=== PATIENT | male | born 1955 | race Caucasian/White ===

== ENCOUNTER 2016-12-25 16:40 | Observation (INO) | payer BC ==
[2016-12-25] MEDS ORDERED: HOME MEDICATION LIST NEEDED 1 EA EACH MC ONE (16:50)
[2016-12-25] MEDS: FUROSEMIDE 20 MG/2 ML VIAL IV SCH (18:28)
[2016-12-25] MEDS: DEXTROSE 5% IV SCH (18:32)
[2016-12-25] MEDS ORDERED: CLINDAMYCIN/D5W 50 ML IV ONE (18:32)
[2016-12-25] MEDS: D5W IV SCH (18:32)
[2016-12-25] MEDS: CLINDAMYCIN IV SCH (18:32)
[2016-12-25] MEDS ORDERED: NORMAL SALINE 500 ML IV ONE (18:32)
[2016-12-25] MEDS: ENOXAPARIN SODIUM 40 MG/0.4 ML SYR SUBCUT SCH (18:40)
[2016-12-25 20:30] LABS: BASOPHIL# 0.1 X 10^3uL (0.0-0.1); BASOPHILS 0.9 % (0.0-2.0); EOSINOPHILS 3.4 % (0.0-6.0); EOSINOPHILS# 0.4 X 10^3uL (0.0-0.4); HEMATOCRIT 43.1 % (42.0-54.0); HEMOGLOBIN 14.7 g/dL (14.0-18.0); LYMPHOCYTES 14.8 % (20.0-40.0); LYMPHOCYTES# 1.8 X 10^3uL (0.8-3.8); MEAN CELL VOLUME 87.9 fL (80.0-100.0); MEAN CORPUS. HGB CONCENTRATION 34.1 g/dL (32.0-36.0); MEAN PLATELET VOLUME 7.9 fL (7.4-10.4); MONOCYTES 7.2 % (2.0-10.0); MONOCYTES# 0.9 X 10^3uL (0.2-1.0); NEUTROPHILS 73.7 % (54.0-75.0); PLATELET COUNT 276 X 10^3uL (130-440); RED CELL DISTRIBUTION WIDTH 13.7 % (11.5-14.5); WHITE BLOOD COUNT 12.2 X 10^3uL (3.9-10.7)
[2016-12-25 20:39] LABS: BLOOD UREA NITROGEN 19 mg/dL (9-20); C-REACTIVE PROTEIN 89.3 mg/L (<10.0); CALCIUM 8.9 mg/dL (8.4-10.2); CHLORIDE 103 mmol/L (98-107); EST GLOMERULAR FILTRATION RATE > 60 mL/min; GLUCOSE 147 mg/dL (70-100); POTASSIUM 3.4 mmol/L (3.5-5.1); SODIUM 142 mmol/L (137-145)
[2016-12-25] MEDS: POTASSIUM CHLORIDE ER 20 MEQ TABLET PO SCH (20:48)
[2016-12-25] MEDS: ACETAMINOPHEN ER 650 MG TAB.SR.8HR PO SCH (20:48)
--- NOTE | 2016-12-25 20:48 | HISTORY & PHYSICAL ---
DATE OF ADMISSION: 12/25/16 ATTENDING PHYSICIAN: Edwin Marrufo MD CONSULTING CONSUMER INSIGHTS INTERN: Homero Morris MD HISTORY OF PRESENT ILLNESS: This 61-year-old gentleman has been battling bilateral foot ulcerations since last fall. His right foot wound healed several months ago, but he continues to has some ulcerations in the left dorsal foot, left lateral ankle, and most recently the left medial ankle. These have been treated primarily by Dr. Homero Morris, Podiatry, more recently with some help from the [facility] at [facility]. He had been progressing nicely with some serial grafting of the L foot lesion up until a month or so ago. The left lateral ankle wound has been slow to respond, probably related to some ongoing problems with bilateral pedal edema, worse on the left than the right. About 3 weeks ago, he developed a new ulceration in the medial left ankle. A week ago, this was about 1.5 cm in diameter. Over the past week, it has grown to 7 x 9 cm and today had a black eschar on it. There was increased drainage from the left lateral ankle wound. He has not had a fever , chills or generalized weakness. Dr. Morris called me this afternoon regarding the alarming worsening and recommending admission. I agreed and directly admitted the patient to [facility] for IV antibiotics and diuresis. PAST MEDICAL HISTORY 1. Chronic bilateral pedal edema. Venous Duplex scan bilaterally last fall ruled out any deep vein thrombosis and he has had no history of that. 2. Hypertension. 3. Morbid obesity. 4. Hypokalemia. 5. 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 6. Chronic bilateral lower extremity ulcers. MEDICATIONS Amlodipine 10 mg daily. Losartan/Hydrochlorothiazide 100/25 mg daily. Metoprolol succinate 200 mg daily. Potassium chloride 20 MEQ daily. ALLERGIES: No known drug allergies. PAST SURGICAL HISTORY 1. Tonsillectomy. 2. Multiple skin grafts on the left foot recently. FAMILY HISTORY: Noncontributory. SOCIAL HISTORY: Patient lives with his mother in [facility]. 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 He has been trying to take 10 minute breaks every hour, but still is not able to elevate his legs. He has never smoked and does not use alcohol or drugs. REVIEW OF SYSTEMS GENERAL: No fevers, chills or malaise. RESPIRATORY: No cough or shortness of breath. CARDIOVASCULAR: No chest pain or palpitations. GI: No nausea, vomiting or diarrhea. : No dysuria. MUSCULOSKELETAL/EXTREMITIES: Chronic bilateral pedal edema, worse on the left than the right. Some new pain in the left medial ankle. PHYSICAL EXAMINATION VITAL SIGNS ON ADMISSION: Temperature of 36.9, blood pressure 148/101, pulse 78 , respiratory rate 20. O2 saturation 94% on room air and his pain is at 2/10 in severity. GENERAL: He is alert and oriented x3 and in no acute distress. He is profoundly hard of hearing. He is a very large gentleman. His weight is 154.2 kilos. Height is 6 feet 4 inches. LUNGS: Clear. HEART: Regular rate and rhythm with no murmur. ABDOMEN: Obese, nontender without masses or hepatosplenomegaly. EXTREMITIES: Had marked pedal edema from the knee downward on the left with a calf diameter of 58 cm at a level 15 cm below the infrapatellar margin. The corresponding measurement on the right calf was 45.5 cm. I reviewed the pictures of the wounds taken by Tete Lowe the Wound Care Nurse this afternoon. On the dorsal left foot, he appeared to have a 1 x 4 cm area of superficial ulceration. On the medial left ankle he has a 7 x 9 cm black eschar with about 5 mm of surrounding erythema. The lateral left ankle has a 4 x 11 cm area of ulceration with some granulation tissue, a large amount of exudate material and also about 0.5 cm surrounding erythema. His calf was nontender and Homans sign negative. He has no obvious varicose veins and his feet are warm. IMAGING: Patient had a normal arterial duplex scan done on 06/25/16. Bilateral venous Dopplers were negative at that time. He has had no imaging yet on this admission. LABORATORY DATA: The following labs are still pending, D-Dimer, CBC, ESR, CRP, BMP. I chose not to get blood cultures since we have a recent wound culture pending from today, and patient does not have systemic symptoms. IMPRESSION 1. Rapid worsening of the medial left ankle ulceration. Highly suggestive of an active infection. 2. Chronic left foot and ankle ulcers since 06/2016. Likely these are due to venous insufficiency and his chronic edema. 3. Chronic bilateral pedal edema, worse on the left than the right. This is probably due to venous insufficiency and with Amlodipine. Amlodipine was increased from 5 to 10 mg in September. The patient was to follow up with me but has not. Rule out DVT. 4. Difficult to control hypertension. His blood pressures at home, though, have been in the 130s/80s according to the patient. 5. Profound chronic hearing loss. PLAN: Dr. Morris and I agreed to admit the patient to get him on IV antibiotics. I will initially try Clindamycin 900 mg IV q.8 hours. If he does not show some response to this soon, though, will need to broaden the coverage for possible methicillin-resistant staphylococcus aureus. I am anxiously awaiting the culture results from the wound from today as well. While in the hospital, we will be able to elevate his legs above heart level most of the time , which should be helpful. He has had a compression dressing applied today by Tete Lowe RN. I am hopeful that Dr. Morris might be able to do some debridement tomorrow. This will probably require sedation and the operating room. I have given him 20 mg of IV Lasix and holding his Amlodipine. I will continue his other blood pressure medications. Will repeat inflammatory labs tomorrow. JEFFERY
[2016-12-25] MEDS ORDERED: HOME MEDICATION LIST NEEDED 1 EA EACH MISC ONE (21:00)
[2016-12-25 21:05] LABS: ERYTHROCYTE SEDIMENTATION RATE 30 MM/HR (0-10)
[2016-12-26] MEDS: D5W IV SCH ×3 (02:01→18:12)
[2016-12-26] MEDS: CLINDAMYCIN IV SCH ×3 (02:01→18:12)
[2016-12-26] MEDS: DEXTROSE 5% IV SCH ×3 (02:01→18:12)
[2016-12-26] MEDS ORDERED: CLINDAMYCIN/D5W 50 ML IV ONE ×3 (02:11→18:22)
[2016-12-26 06:56] LABS: HEMATOCRIT 38.7 % (42.0-54.0); HEMOGLOBIN 12.8 g/dL (14.0-18.0); RED BLOOD COUNT 4.11 X 10^6uL (4.20-6.10)
[2016-12-26 06:57] LABS: LYMPHOCYTE % (Manual) 17 % (20.0-40.0); MEAN CORPUS. HGB CONCENTRATION 33.2 g/dL (32.0-36.0); MEAN CORPUSCULAR HEMOGLOBIN 31.3 pg (29.0-35.0); MONOCYTE % (Manual) 21 % (2.0-10.0); NEUTROPHIL % (Manual) 62 % (54.0-75.0); PLATELET COUNT 188 X 10^3uL (130-440); PLATELET ESTIMATE ADEQUATE
[2016-12-26 07:46] LABS: ERYTHROCYTE SEDIMENTATION RATE 38 MM/HR (0-10)
[2016-12-26] MEDS ORDERED: LIDOCAINE HCL/PF 4% 5 ML AMP TOPICAL ONE (08:26)
[2016-12-26] MEDS ORDERED: LIDOCAINE HCL 4% TOPICAL PRN (08:31)
[2016-12-26] MEDS: ACETAMINOPHEN ER 650 MG TAB.SR.8HR PO SCH ×3 (08:47→20:40)
[2016-12-26] MEDS: LOSARTAN POTASSIUM 50 MG TABLET PO SCH (09:00)
[2016-12-26] MEDS: POTASSIUM CHLORIDE ER 20 MEQ TABLET PO SCH ×2 (09:00→20:40)
[2016-12-26] MEDS ORDERED: LIDOCAINE HCL/PF 4% 5 ML AMP TOPICAL SCH (09:00)
[2016-12-26] MEDS ORDERED: LIDOCAINE HCL/PF 4% 5 ML AMP TOPICAL PRN (09:00)
[2016-12-26] MEDS: FUROSEMIDE 20 MG/2 ML VIAL IV SCH (09:01)
[2016-12-26] MEDS: ENOXAPARIN SODIUM 40 MG/0.4 ML SYR SUBCUT SCH (09:01)
[2016-12-26] MEDS: MORPHINE SULFATE 4 MG/ML SYR IV SCH ×2 (09:01→18:02)
[2016-12-26] MEDS: LEVOFLOXACIN 250 MG TABLET PO SCH (09:10)
--- NOTE | 2016-12-26 14:16 | PROGRESS NOTE: IM APSO ---
Assessment and Plan - Date of Encounter Date of Encounter: 12/26/16 (1) Foot ulcer, left Status: Acute Assessment and plan: I admitted him yesterday for acute infection and worsening of his medial and lateral left ankle ulcerations. I have placed him on clindamycin 900 mg every 8 hours initially. His white count has defervesced from 12,000 down to 10,000 on this. however, his ESR has risen from 30 up to 38. He remains afebrile and feels okay, except for some mild pain in the area of the ulceration. according to his wound care nurse and investor, the wounds appear healthier today with less drainage. Yesterday he had a severe odor to the wound, but that is decreased some today. Unfortunately, his outpatient wound culture gathered yesterday afternoon by the wound care nurse did not get set up last evening, but was set up this morning. given the odor and appearance of the wound, I am concerned about the possibility of Pseudomonas. I elected to add Levaquin today to help cover this. I made this choice over other possibly more potent antipseudomonal drugs, because the patient is very anxious to transition to outpatient care. He is very concerned about costs and has had trouble with pain consistent with outpatient follow-up. I will recheck labs in the morning. My hope initially was to discharge him Friday and 12/27/16 on either outpatient oral clindamycin or Levaquin. Now, that is seeming unlikely given the delays in culture results, and the development of atrial fibrillation today. I will switch him to inpatient care. Current Visit: No (2) Hypertension Status: Acute Assessment and plan: This remains under reasonable control on his usual losartan 100 mg daily, metoprolol succinate 200 mg daily. I also switched him from HCTZ 25 mg daily to IV furosemide 20 mg daily. I am holding his amlodipine 10 mg because of his pedal edema. Refer to the section on atrial fib. Current Visit: No (3) Hypokalemia Status: Acute Assessment and plan: He was slightly low on admission, so I have doubled his usual potassium dose to 20 mEq twice a day Current Visit: No (4) Pedal edema Status: Acute Assessment and plan: Chronic but worsened over the last few weeks, especially in the left leg. . This is significantly improved from admission. His weight is down 2 kg. Continue IV Lasix and left leg compression. The ultrasound machine broke half way through his exam today. The lower half of his left leg is free of clot. We are uncertain about the upper portion of the left leg. His d-dimer was mildly elevated. Bilateral venous duplex scans were negative in June. I suspect the edema is due to venous insufficiency and his amlodipine use. Current Visit: No (5) Wound infection Status: Acute Assessment and plan: refer to the section on foot ulcers. Current Visit: No (6) Atrial fibrillation with RVR Status: Acute Assessment and plan: During my rounds this morning noticed that his heart rate was irregular and slightly fast. an EKG and telemetry have confirmed atrial fibrillation with a rate in the 110 range. He is entirely asymptomatic. He has no previous known history of atrial fibrillation. He was already on metoprolol 200 mg daily. I will continue that, plus cautiously add 30 mg of short acting diltiazem by mouth and monitor. If he tolerates this well, I will switch to 120 mg controlled release. I am holding off on adding anticoagulation in anticipation of possible debridement today. Dr. Morris no longer has adequate time to do that today. I have asked Dr. Ibarra to consider it. It would be nice to get this done today so that we can start anticoagulating him for the A. fib. I have ordered an echocardiogram and cardiology consult for tomorrow. I will switch him to inpatient status. Current Visit: Yes - Time Spent With Patient Total time spent with greater than 50% in coordination of care (as documented) at patient's floor/unit and/or counseling patient: Estimated anticipated discharge: ??? IM: PN Subjective General: good appetite, no fatigue, no confusion, no diaphoresis, no fever, no chills HEENT: no headache Cardiovascular: no chest pain, no palpitations, no dizziness Respiratory: no cough, no wheeze Gastrointestinal: no abdominal pain Musculoskeletal: pain (mild in the left lateral ankle), swelling (left leg worse than the right leg. Both improved) Integumentary: wound Neurological: no numbness, no limb weakness IM: PN Objective Exam - I&O/Vital Signs I&O: Intake & Output 12/26/16 12/26/16 12/26/16 05:59 13:59 21:59 Weight 152.226 kg Other: Urine Appearance Clear Urine Color Straw Voiding Method Urinal Vital Signs: Last Vital Signs Temp 36.9 C 12/26/16 11:00 Pulse 87 12/26/16 11:00 Resp 18 12/26/16 11:00 BP 133/99 12/26/16 11:00 Pulse Ox 94 12/26/16 11:00 Oxygen Delivery Method Room Air - Constitutional General appearance: Present: obese. Absent: acute distress - Head Head exam: Present: normal inspection - ENT ENT exam: Present: mucous membranes moist - Respiratory Respiratory exam: Present: clear - Cardiovascular Cardiovascular exam: Present: irregular rhythm, tachycardia - GI/Abdominal GI/Abdominal exam: Present: soft. Absent: tenderness - Extremities Exam Extremities exam: Present: normal capillary refill, edema (but decreased compared to yesterday), tenderness (both ankle wounds - mild/mod.). Absent: calf tenderness - Neurological Exam Neurological exam: Present: oriented X3 - Psychiatric Psychiatric exam: Present: normal mood - Lab Labs: Laboratory Last Values WBC 10.0 X 10^3uL (3.9-10.7) 12/26/16 05:15 RBC 4.11 X 10^6uL (4.20-6.10) L 12/26/16 05:15 Hgb 12.8 g/dL (14.0-18.0) L 12/26/16 05:15 Hct 38.7 % (42.0-54.0) L 12/26/16 05:15 MCV 94.0 fL (80.0-100.0) D 12/26/16 05:15 MCH 31.3 pg (29.0-35.0) 12/26/16 05:15 MCHC 33.2 g/dL (32.0-36.0) 12/26/16 05:15 RDW Not Reportable 12/26/16 05:15 Plt Count 188 X 10^3uL (130-440) 12/26/16 05:15 MPV Not Reportable 12/26/16 05:15 Total Counted 100 12/26/16 05:15 Neutrophils % 73.7 % (54.0-75.0) 12/25/16 20:10 Neutrophils % (Manual) 62 % (54.0-75.0) 12/26/16 05:15 Lymphocytes % 14.8 % (20.0-40.0) L 12/25/16 20:10 Lymphocytes % (Manual) 17 % (20.0-40.0) L 12/26/16 05:15 Monocytes % (Manual) 21 % (2.0-10.0) H 12/26/16 05:15 Eosinophils % 3.4 % (0.0-6.0) 12/25/16 20:10 Basophils % 0.9 % (0.0-2.0) 12/25/16 20:10 Neutrophils # 9.0 X 10^3uL (2.6-6.7) H 12/25/16 20:10 Lymphocytes # 1.8 X 10^3uL (0.8-3.8) 12/25/16 20:10 Monocytes 7.2 % (2.0-10.0) 12/25/16 20:10 Monocytes # 0.9 X 10^3uL (0.2-1.0) 12/25/16 20:10 Eosinophils # 0.4 X 10^3uL (0.0-0.4) 12/25/16 20:10 Basophils # 0.1 X 10^3uL (0.0-0.1) 12/25/16 20:10 Platelet Estimate Adequate 12/26/16 05:15 ESR 38 MM/HR (0-10) H 12/26/16 05:15 D-Dimer 467 ng/mL H* 12/25/16 20:10 Sodium 142 mmol/L (137-145) 12/25/16 20:10 Potassium 3.4 mmol/L (3.5-5.1) L 12/25/16 20:10 Chloride 103 mmol/L (98-107) 12/25/16 20:10 Carbon Dioxide 26 mmol/L (22-30) 12/25/16 20:10 BUN 19 mg/dL (9-20) 12/25/16 20:10 Creatinine 1.0 mg/dL (0.7-1.3) 12/25/16 20:10 GFR Calculation > 60 mL/min 12/25/16 20:10 Glucose 147 mg/dL (70-100) H 12/25/16 20:10 Calcium 8.9 mg/dL (8.4-10.2) 12/25/16 20:10 C-Reactive Protein 89.3 mg/L (<10.0) H 12/25/16 20:10 Quality Questions - VTE Prophylaxis Assessment VTE Present on Admission?: No Patient at risk for venous thromboembolism?: Yes VTE Risk Level: High Risk Pharmaceutical VTE prophylaxis contraindication reason: N/A- VTE prophylaxsis ordered Mechanical VTE prophylaxis contraindication reason: N/A- VTE prophylaxsis ordered (1) Foot ulcer, left Qualifiers: Non-pressure ulcer stage: with fat layer exposed Qualified Code(s): L97.522 - Non-pressure chronic ulcer of other part of left foot with fat layer exposed (2) Hypertension Qualifiers: Hypertension type: essential hypertension Qualified Code(s): I10 - Essential (primary) hypertension
[2016-12-26] MEDS ORDERED: DILTIAZEM HCL 30 MG TABLET PO SCH (15:00)
[2016-12-26] MEDS: LIDOCAINE HCL/PF 4% 5 ML AMP TOPICAL PRN (18:04)
[2016-12-26] MEDS ORDERED: COLLAGENASE OINT 30 APP/30 GM TUBE TOPICAL ONE (18:42)
[2016-12-26] MEDS ORDERED: NON-FORMULARY MEDICATION (Eliquis 5 MG) PO SCH (21:00)
[2016-12-26] MEDS ORDERED: DILTIAZEM HCL CD 120 MG CAPSULE PO SCH (21:00)
[2016-12-27] MEDS: D5W IV SCH (02:03)
[2016-12-27] MEDS: CLINDAMYCIN IV SCH (02:03)
[2016-12-27] MEDS: DEXTROSE 5% IV SCH (02:03)
[2016-12-27] MEDS ORDERED: CLINDAMYCIN/D5W 50 ML IV ONE (02:12)
[2016-12-27] MEDS ORDERED: NORMAL SALINE 250 ML IV ONE (02:14)
[2016-12-27 05:35] LABS: BASOPHIL# 0.1 X 10^3uL (0.0-0.1); EOSINOPHILS 2.4 % (0.0-6.0); EOSINOPHILS# 0.3 X 10^3uL (0.0-0.4); HEMATOCRIT 41.5 % (42.0-54.0); HEMOGLOBIN 14.1 g/dL (14.0-18.0); LYMPHOCYTES 13.2 % (20.0-40.0); LYMPHOCYTES# 1.4 X 10^3uL (0.8-3.8); MEAN CELL VOLUME 87.9 fL (80.0-100.0); MEAN CORPUSCULAR HEMOGLOBIN 29.8 pg (29.0-35.0); MEAN PLATELET VOLUME 7.9 fL (7.4-10.4); MONOCYTES 9.7 % (2.0-10.0); NEUTROPHILS 73.7 % (54.0-75.0); NEUTROPHILS# 7.7 X 10^3uL (2.6-6.7); PLATELET COUNT 229 X 10^3uL (130-440); RED BLOOD COUNT 4.72 X 10^6uL (4.20-6.10); RED CELL DISTRIBUTION WIDTH 13.5 % (11.5-14.5); WHITE BLOOD COUNT 10.5 X 10^3uL (3.9-10.7)
[2016-12-27 05:47] LABS: BLOOD UREA NITROGEN 16 mg/dL (9-20); C-REACTIVE PROTEIN > 90.0 mg/L (<10.0); CALCIUM 8.5 mg/dL (8.4-10.2); CHLORIDE 109 mmol/L (98-107); CREATININE 0.8 mg/dL (0.7-1.3); EST GLOMERULAR FILTRATION RATE > 60 mL/min; GLUCOSE 109 mg/dL (70-100); POTASSIUM 3.8 mmol/L (3.5-5.1); SODIUM 142 mmol/L (137-145)
[2016-12-27 06:10] LABS: ERYTHROCYTE SEDIMENTATION RATE 32 MM/HR (0-10)
[2016-12-27] MEDS: LOSARTAN POTASSIUM 50 MG TABLET PO SCH (08:04)
[2016-12-27] MEDS: POTASSIUM CHLORIDE ER 20 MEQ TABLET PO SCH (08:04)
[2016-12-27] MEDS: LEVOFLOXACIN 250 MG TABLET PO SCH (08:05)
[2016-12-27] MEDS: ACETAMINOPHEN ER 650 MG TAB.SR.8HR PO SCH ×3 (08:05→15:19)
[2016-12-27] MEDS: FUROSEMIDE 20 MG/2 ML VIAL IV SCH (08:07)
[2016-12-27] MEDS: ENOXAPARIN SODIUM 40 MG/0.4 ML SYR SUBCUT SCH (08:07)
[2016-12-27] MEDS ORDERED: APIXABAN 2.5 MG TABLET PO SCH (09:00)
[2016-12-27] MEDS ORDERED: ACETAMINOPHEN 325 MG TABLET PO PRN (09:51)
[2016-12-27] MEDS ORDERED: DILTIAZEM HCL CD 120 MG CAPSULE PO SCH (10:00)
[2016-12-27] MEDS: CLINDAMYCIN/D5W 50 ML IV SCH ×2 (10:02→17:47)
[2016-12-27] MEDS: LIDOCAINE HCL/PF 4% 5 ML AMP TOPICAL PRN (13:50)
--- NOTE | 2016-12-27 14:03 | CONSULTATION ---
DATE OF CONSULTATION: 12/27/16 REQUESTING PHYSICIAN: Edwin Marrufo MD. REASON FOR CONSULTATION: Atrial fibrillation. HISTORY OF PRESENT ILLNESS: The patient is a 61-year-old male admitted to [facility] on 12/25/16 with lower extremity cellulitis. Cardiology consultation was requested regarding atrial fibrillation. He was thought to be in sinus rhythm on admission, however, yesterday during rounds he was noted to be tachycardic with an irregularly irregular rhythm. An ECG was performed (currently unavailable for review) which apparently indicated atrial fibrillation. He is not know to have arrhythmia in the past. This morning he denies palpitations, chest pain or dyspnea. He has no prior history of coronary artery disease or CHF. He does have a fairly complex past medical history consisting of chronic lower extremity edema and cellulitis. He does not have known peripheral arterial disease. He has history of hypertension, morbid obesity and profound hearing loss. MEDICATIONS: His outpatient medications have been Amlodipine 10 mg a day. Losartan/hydrochlorothiazide 100/25 mg daily. Metoprolol 200 mg daily. Potassium 20 mEq daily. ALLERGIES: None. PAST SURGICAL HISTORY: Significant for 1. Tonsillectomy. 2. Prior left foot skin grafts for wounds. FAMILY HISTORY: No premature cardiovascular disease. 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 He also works in [employer] in a [employer]. CURRENT INPATIENT MEDICATIONS Losartan 100 mg p.o. q.day. Metoprolol 200 mg q.day. Morphine 4 mg IV p.r.n. Potassium 20 mEq b.i.d. Eliquis 5 mg b.i.d. Diltiazem CD 120 mg at bedtime. Lovenox 40 mg subcu q.day. Lasix 20 mg IV q.day. Levaquin 750 mg p.o. q.day. REVIEW OF SYSTEMS GENERAL: He reports feeling fairly well. He denies any pain or discomfort at the present time. He has had no recent fevers, chills or nausea. NEUROLOGIC: No stroke or TIA like symptoms. CARDIOVASCULAR: No palpitation. No chest pain. No dyspnea on exertion. He does have chronic lower extremity edema thought to be venous insufficiency. RESPIRATORY: No cough. No wheeze. GI: No nausea, vomiting, diarrhea. : No dysuria. PHYSICAL EXAMINATION VITAL SIGNS: Blood pressure 122/92. He is tachycardic in atrial flutter at 150 beats per minute. He is afebrile. O2 saturation 94-99% on room air. NECK: Neck veins are not elevated. Carotid upstrokes appear to be normal bilaterally. No bruits. CHEST: Lungs clear to auscultation. No wheezes or rales. CARDIAC: He is tachycardic. Normal S1, normal S2 and no murmur, no gallop, no rub. ABDOMEN: Obese, soft, nontender, nondistended. EXTREMITIES: He has 2-3+ lower extremity edema bilaterally. His bilateral lower extremities are wrapped and not undressed to visualize foot wounds. LABORATORY DATA: On 12/27 hemoglobin was 14.1, ESR 32. Potassium 3.8, glucose 109, CRP greater than 90. Creatinine 0.8. He had a rest echocardiogram this morning which I have reviewed personally. Again, he is in atrial flutter with rapid ventricular response during the exam. He appears to have low normal LV systolic function, EF 50%. There are no obvious regional wall motion abnormalities. No significant valvular heart disease. No pericardial effusion. IMPRESSION 1. Atrial flutter with RVR. 2. LVEF 50%. 3. Chronic lower extremity edema and wounds likely due to venous insufficiency and chronic venostasis. 4. Obesity. RECOMMENDATIONS: Management was discussed with his admitting physician. Would continue efforts at ventricular rate control with beta rain adding some calcium channel rain either oral or IV. Digoxin 0.25 mg daily could be added as well. I agree with anticoagulation consisting of Eliquis 5 mg b.i.d. The subcutaneous Lovenox could be discontinued now that he is on Eliquis. If ventricular rate control is difficult to achieve cardioversion may have to be considered. I would recommend a transesophageal echocardiogram prior to proceeding with a cardioversion. While he was in sinus rhythm on admission he is completely asymptomatic despite significant tachycardia today and he may be in and out of atrial arrhythmia as an outpatient. Otherwise he should receive 4 weeks of uninterrupted oral anticoagulation prior to a cardioversion. If his arrhythmia is primarily atrial flutter he might be considered for atrial flutter ablation at some point. This would not obviate the need for oral anticoagulation, however, as he is at risk for atrial fibrillation as well. Please do not hesitate to contact the on-call plastics spreading machine operator for [facility] over the holiday weekend if problems arise. Otherwise have the patient followup with Cardiology in [place] early next week. This was discussed with the patient and his admitting physician. All questions were answered. Thank you for asking us to participate in the care of this unfortunate gentleman. JEFFERY
[2016-12-27] MEDS: MORPHINE SULFATE 4 MG/ML SYR IV SCH (15:19)
[2016-12-27 16:07] VITALS: BP 137/94; RESP 24; TEMP 99.4; O2SAT 91
[2016-12-27 16:10] VITALS: PULSE 91
--- NOTE | 2016-12-27 21:33 | DC SUMMARY: IM Note ---
Discharge Summary: IM/Peds Provider: Date of Admission: 12/26/16 Admitting Provider: ROSY KENNEDY MD Attending Provider: ROSY KENNEDY MD Discharging Provider: ROSY KENNEDY MD Primary Care Provider: Discharge Date: 12/27/16 Consults: 12/25/16 18:51 Podiatry Consult [CONS] Routine Reason: debridement of infected L ankle ulcers 12/27/16 08:00 Cardiology Consult [CONS] . Reason: Hx of CHF, pacer/defib - Diagnosis (1) Foot ulcer, left Status: Acute Qualifiers: Non-pressure ulcer stage: with fat layer exposed Qualified Code(s): L97.522 - Non-pressure chronic ulcer of other part of left foot with fat layer exposed (2) Hypertension Status: Acute Qualifiers: Hypertension type: essential hypertension Qualified Code(s): I10 - Essential (primary) hypertension (3) Hypokalemia Status: Acute (4) Pedal edema Status: Acute (5) Wound infection Status: Acute (6) Atrial fibrillation with RVR Status: Acute (7) Elevated d-dimer Status: Acute Hospital Course: Admitted for infection of chronic venous stasis ulcers on L ankle. Final culture pending, but it appears to be a lactose fermenting G neg eddie. Responding clinically to clindamycin and Levaquin. Will D/C on Levaquin plus wound vac. L leg edema decreased dramatically with Lasix 20 mg IV daily and with D/C of amlodipine. Lost 2 kg in the first day. D-dimer was in the 400's, but doppler negative for clot. New atrial fib/flutter discovered during his stay. Was in NSR on admit and was asymptomatic in the a. fib. Rate initially in the 110-120 range. Dropped to the 80's today on the combination of diltiazem CD 240 mg/d and metoprolol succinate 200 mg/d. Continue that. Started on Eliquis at 5 mg bid on 12/26/16. Continue. Gave 2 weeks of samples plus a script with a coupon for 30 more [address] Rankin today. Echo w/ severe LAE, but no significant valvular disease. LVH. See Dr. Albarado in the AM on 01/01 for surgical clearance in anticipation for a wound debridement later that day by Dr. Wheeler. - Time Spent with Patient Total time spent providing and/or coordinating discharge services: Discharge - Patient/Caregiver Discharge Instructions Activity Level: Try to elevate your legs above heart level as much as possible. Diet: Regular Additional Instructions: Use wound vac as directed. See Tete on MWF at [facility] wound care center. Continue to elevate your legs as much as possible. This will continue to decrease your swelling. See printed information related to your wound vac and also follow verbal instructions given by wound care nurses. Follow your medication regimen as prescribed within your discharge instructions. Be sure to start taking your anticoagulant tomorrow (Eliquis.) If you have difficulty obtaining this medication please contact your physician. This medication is vital to prevent clots due to your newly diagnosed Atrial fibrillation. Follow up: ROSY KENNEDY MD [ACTIVE (Staff Physician)] - 01/03/17 9:20 am JOHN ALBARADO MD [MD] - 01/01/17 MARK ANTHONY WHEELER DPM [DPM] - 01/01/17 (MUST BE AFTER 10:40 Nurse will call PT to sched that day Alexandra is double booked ) Home Medications: Diltiazem HCl Cd [Cardizem Cd*] 240 mg PO DAILY #30 capsule Apixaban [Eliquis] 5 mg PO BID #60 tab Furosemide [Lasix*] 20 mg PO DAILY #30 tablet Levofloxacin [Levaquin*] 750 mg PO DAILY #5 tablet Disposition: HOME, SELF-CARE Discharge Summary Data - Medication History Medication History: Home Medications Acetaminophen ER [Tylenol ER*] 650 mg PO QID PRN 12/26/16 Apixaban [Eliquis] 5 mg PO BID #60 tab 12/27/16 Collagenase Oint [Santyl Oint*] 1 khadra TOPICAL DAILY PRN #1 tube 12/27/16 Diltiazem HCl Cd [Cardizem Cd*] 240 mg PO DAILY #30 capsule 12/27/16 Furosemide [Lasix*] 20 mg PO DAILY #30 tablet 12/27/16 Levofloxacin [Levaquin*] 750 mg PO DAILY #5 tablet 12/27/16 Losartan Potassium [Cozaar*] 50 mg PO DAILY #0 12/27/16 Potassium Chloride ER [K-Dur*] 20 meq PO BID tablet 12/27/16 metoprolol SUCC ER [Toprol Xl*] 200 mg PO DAILY tablet 12/27/16 Procedures and tests throughout hospitalization: Completed Lab Orders 12/25/16 20:10 BASIC METABOLIC PANEL [CHEM] Routine C-REACTIVE PROTEIN [CHEM] Routine CBC AUTO DIF, MDIF/RMOR IF IND [HEM] Routine DDIMER [HEM] Routine ERYTHROCYTE SEDIMENTATION RATE [HEM] Routine 12/26/16 05:15 CBC W/ MANUAL DIFFERENTIAL [HEM] Routine ESR [ERYTHROCYTE SEDIMENTATION RATE] [HEM] AMDRAW 12/27/16 05:20 BMP [BASIC METABOLIC PANEL] [CHEM] AMDRAW CBC AUTO DIF, MDIF/RMOR IF IND [HEM] AMDRAW ESR [ERYTHROCYTE SEDIMENTATION RATE] [HEM] AMDRAW crp arthritis [C-REACTIVE PROTEIN] [CHEM] AMDRAW Pending Orders 12/25/16 16:50 Admit: Observation Routine Activity: Ambulate TID Activity: Bathroom Privileges . Resuscitation Status Routine Titrate Oxygen TITRATE B/W 90-95% Vital Signs ROUTINE VITALS (Q4H) 12/25/16 17:26 Sequential Compression Device WHILE IN BED 12/25/16 18:51 Podiatry Consult [CONS] Routine 12/26/16 08:00 Venous Duplex, Unilateral/Ltd [CARDIO] Routine 12/26/16 08:33 Obtain weight 0600 12/26/16 09:00 NPO for test .6HOURS BEFORE TEST 12/26/16 09:04 Venous Duplex, Unilateral/Ltd [CARDIO] Routine 12/26/16 09:13 Venous Duplex, Unilateral/Ltd [CARDIO] Routine 12/26/16 13:12 Telemetry monitoring CONTINUOUS TELE 12/26/16 14:02 Echocardiogram [CARDIO] Routine 12/26/16 14:39 Change from Observation to Inpatient Routine 12/27/16 08:00 Cardiology Consult [CONS] . 12/27/16 18:01 Discharge ONCE Labs on day of discharge: Labs from last 24 hours 12/27/16 05:20 WBC 10.5 RBC 4.72 Hgb 14.1 Hct 41.5 L MCV 87.9 D MCH 29.8 MCHC 34.0 RDW 13.5 Plt Count 229 MPV 7.9 Neutrophils % 73.7 Lymphocytes % 13.2 L Eosinophils % 2.4 Basophils % 1.0 Neutrophils # 7.7 H Lymphocytes # 1.4 Monocytes 9.7 Monocytes # 1.0 Eosinophils # 0.3 Basophils # 0.1 ESR 32 H Sodium 142 Potassium 3.8 Chloride 109 H Carbon Dioxide 23 BUN 16 Creatinine 0.8 GFR Calculation > 60 Glucose 109 H Calcium 8.5 C-Reactive Protein > 90.0 H IM: Discharge Physical Exam - I&O/Vital Signs I&O: Intake & Output 12/27/16 12/27/16 12/27/16 05:59 13:59 21:59 Intake Total 250 Balance 250 Intake: Oral 250 Other: Urine Appearance Clear Urine Color Straw Voiding Method Urinal Vital Signs: Last Vital Signs Temp 37.4 C 12/27/16 15:00 Pulse 91 H 12/27/16 15:00 Resp 24 12/27/16 15:00 BP 137/94 12/27/16 15:00 Pulse Ox 91 12/27/16 15:00 Oxygen Delivery Method Room Air - Constitutional General appearance: Present: obese. Absent: acute distress - Head Head exam: Present: normal inspection - ENT ENT exam: Present: mucous membranes moist - Respiratory Respiratory exam: Present: clear - Cardiovascular Cardiovascular exam: Present: irregular rhythm, tachycardia - GI/Abdominal GI/Abdominal exam: Present: soft. Absent: tenderness - Extremities Exam Extremities exam: Present: normal capillary refill, edema (but decreased compared to yesterday), tenderness (both ankle wounds - mild). Absent: calf tenderness - Neurological Exam Neurological exam: Present: oriented X3 - Psychiatric Psychiatric exam: Present: normal mood
[2016-12-28] MEDS ORDERED: FUROSEMIDE 20 MG TABLET PO SCH (09:00)
[2016-12-28] MEDS ORDERED: APIXABAN 2.5 MG TABLET PO SCH (09:00)
[2016-12-28] MEDS ORDERED: LOSARTAN POTASSIUM 50 MG TABLET PO SCH (09:00)
== END 2016-12-27 19:05 | disposition home or self-care (01) ==
LOC: IN 16:40 → UNDOADMOB 16:40 → IN 12-26 14:40 → UNDOADMOB 12-26 14:40
PROVIDERS: ADMIT Family Medicine; ATTEND Family Medicine
DX: L97.522 Non-pressure chronic ulcer of other part of left foot with fat layer exposed (principal); I11.0 Hypertensive heart disease with heart failure; I48.91 Unspecified atrial fibrillation; R60.0 Localized edema; I50.9 Heart failure, unspecified; R74.8 Abnormal levels of other serum enzymes; E66.01 Morbid (severe) obesity due to excess calories; E87.6 Hypokalemia; H90.6 Mixed conductive and sensorineural hearing loss, bilateral; Z79.899 Other long term (current) drug therapy
CPT/HCPCS: 36415; 80048; 85007; 85025; 85027; 85379; 85651; 86140; 93041; 93306; 93971; 96365; 96366; 96372; 96375; 96376; G0378; G0379; J1650; J1940; J2270; J7040; J7050

== ENCOUNTER 2017-01-01 07:42 | Day surgery (SDC) | payer BC ==
[2017-01-01] MEDS ORDERED: LIDOCAINE HCL 1% 20 ML VIAL SUBCUT SCH (08:54)
[2017-01-01] MEDS ORDERED: FENTANYL 100 MCG/2 ML VIAL IV PRN (08:55)
[2017-01-01] MEDS ORDERED: LACTATED RINGERS 1,000 ML IV SCH (09:00)
[2017-01-01 09:02] VITALS: RESP 16
[2017-01-01] MEDS ORDERED: BUPIVACAINE HCL/PF 0.5% 30 ML VIAL ONE (09:10)
[2017-01-01 10:39] VITALS: BP 121/66; PULSE 66; TEMP 98.1; O2SAT 93
--- NOTE | 2017-01-03 15:00 | PREOPERATIVE H&P ---
History of Present Illness (Homero Morris DPM; 01/01/2017 11:04 AM) Patient words: Wound debridement of L ankle wound in O.R. (see op note). The patient is a 61 year old male. Physical Exam (Homero Morris DPM; 01/01/2017 11:07 AM) Musculoskeletal Lower Extremity Ankle/Foot: Foot - Evaluation of related systems reveals - well developed, well nourished and in no acute distress, alert and oriented x3 and neurovascularly intact bilaterally. Examination of the right foot reveals - no tenderness to palpation, no pain, no swelling, edema or erythema of surrounding tissue, normal foot and ankle movements and range of motion, no crepitus and no known fractures or deformities. Examination of the left foot reveals - normal strength and tone, normal foot and ankle movements and range of motion, no crepitus, no instability and no known fractures or deformities. Inspection and Palpation - Effusion - 3+, (L). Sensation is - normal, (R) and increased, (L). Pulses - 2+, (R) and 2+, (L). Examination reveals - Note: 6 cm x 10 cm wound at medial L ankle. Moderate fibrosis at wound base. No signs of infection. Moderate swelling L LE. 3 cm x 10 cm at lateral L ankle. Granular base. No infection. Wound at dorsal L foot is 1 cm x 5 cm. Moderate fibrosis overlying. No infection. Assessment & Plan (Homero Morris DPM; 01/01/2017 11:07 AM) Stasis ulcer of left ankle (I83.023) Current Plans ACTIVE DEBRIDEMENT OF WOUND 20 [address] OR LESS ([address]222) MTDD
== END 2017-01-01 11:10 | disposition home or self-care (01) ==
LOC: SDS 07:42
PROVIDERS: ATTEND Podiatrist Foot & Ankle Surgery
DX: L97.522 Non-pressure chronic ulcer of other part of left foot with fat layer exposed (principal); I11.0 Hypertensive heart disease with heart failure; I48.91 Unspecified atrial fibrillation; I50.9 Heart failure, unspecified; E66.01 Morbid (severe) obesity due to excess calories; E87.6 Hypokalemia; Z79.899 Other long term (current) drug therapy